=== PATIENT | male | born 1975 | race Caucasian/White ===

== ENCOUNTER 2020-03-18 18:49 | Emergency (ER) | payer OTHER, BC ==
[2020-03-18 20:18] VITALS: BP 125/87
== END 2020-03-18 20:18 | disposition home or self-care (01) ==
LOC: ED 18:49
DX: G43.909 Migraine, unspecified, not intractable, without status migrainosus (principal); Z79.899 Other long term (current) drug therapy
CPT/HCPCS: J1885

== ENCOUNTER → 2021-09-10 | Outpatient (CLI) | payer BC, OTHER | LOC: RAD 15:35 | DX: R07.9 Chest pain, unspecified (principal) ==

== ENCOUNTER → 2022-01-15 | Outpatient (CLI) | payer BC | LOC: RAD 09:32 | DX: R31.0 Gross hematuria (principal) | CPT/HCPCS: Q9967 ==